=== PATIENT | male | born 1985 | race African-American/Black ===

== ENCOUNTER 2020-11-03 11:40 | Emergency (ER) | payer MEDICAID ==
[~2020-11-03] VITALS: Ht 172.7 cm; Wt 84.0 kg
[2020-11-03 12:55] LABS: GLUCOSE,POINT OF CARE 91 MG/DL (70-110)
[2020-11-03 13:53] VITALS: BP 120/80
== END 2020-11-03 13:58 | disposition home or self-care (01) ==
LOC: EMS 11:43
DX: R21 Rash and other nonspecific skin eruption (principal)
CPT/HCPCS: 82948; 82962; 99282